=== PATIENT | male | born 1990 | race Two or more races ===

== ENCOUNTER 2022-05-15 13:34 | Emergency (ER) | payer MEDICAID, OTHER ==
[~2022-05-15] VITALS: Ht 177.8 cm; Wt 93.4 kg
[2022-05-15 13:41] VITALS: BP 137/92
== END 2022-05-15 16:00 | disposition left against medical advice (07) ==
LOC: ER 13:34
DX: R36.9 Urethral discharge, unspecified (principal); Z53.21 Procedure and treatment not carried out due to patient leaving prior to being seen by health care provider